=== PATIENT | female | born 2005 | race Caucasian/White ===

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

== ENCOUNTER 2023-05-04 00:41 | Emergency (ER) | payer BC, SELFPAY ==
[2023-05-04 00:42] VITALS: BP 119/86; PULSE 110; RESP 19; TEMP 36.9; O2SAT 99; BMI 34.4
[2023-05-04 00:50] VITALS: TEMP 37
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
[2023-05-04] MEDS: Ondansetron 4 MG/2 ML Vial IV (00:57)
[2023-05-04 01:04] LABS: Absolute Neutrophil Count 6.7 X10^3/uL (2.0-7.7); Basophil# 0.06 X10^3/uL; Basophil% 0.6 % (0-1); Eosinophil# 0.17 X10^3/uL; Eosinophils% 1.6 % (0-5); Hematocrit 36.9 % (37-47); Hemoglobin 11.8 g/dL (12.0-15.0); Lymphocyte % 27.3 % (19-41); Mean Corpuscular Hgb 26.9 pg (27.0-32.0); Mean Corpuscular Volume 84.1 fL (81-99); Mean Platelet Vol. 10.8 fl (6.2-12.0); Monocyte# 0.67 X10^3/uL; Monocyte% 6.3 % (0-10); NRBC Flagged by Analyzer 0 % (0-5); Neutrophil # 6.74 X10^3/uL (2.7-7.7); Neutrophil % 63.3 % (47-70); Platelet Count 307 K/mm3 (150-450); RBC Distribution Width CV 14.4 % (11.6-14.6); RBC Distribution Width SD 43.7 fl (35.1-43.9); Red Blood Count 4.39 M/mm3 (4.2-5.4); White Blood Count 10.6 K/mm3 (4.4-11.0)
[2023-05-04 01:13] LABS: Internal QC Validated? YES +Cl - CLEAR BKGD; Pregnancy, Serum, hCG Quali. NEGATIVE Negative
[2023-05-04 01:18] LABS: Anion Gap 7 (5-15); BUN 16 mg/dL (7-18); BUN/Creat Ratio 15.8 RATIO (10-20); Chloride 111 mmol/L (98-107); Creatinine, Serum 1.01 mg/dL (0.55-1.02); EST Glomerular Filtration Rate 74 mL/min (>60); Est Glom Filt Rate - Afr Amer 90 mL/min (>60); Estimated Creatinine Clearance 70.27 ml/min; Glucose 98 mg/dL (74-106); Potassium 3.6 mmol/L (3.5-5.1); Sodium Level 140 mmol/L (136-145)
[2023-05-04] MEDS: HYDROmorphone 0.5 MG/0.5 ML SYRINGE IV (02:00)
[2023-05-04 02:16] LABS: Mucous, Urine 0 SEEN /hpf (<or=2+); Red Blood Cells-Urine 0 SEEN /hpf (0-5)
[2023-05-04 02:18] LABS: Color, Urine Yellow (Yellow); Glucose, Dipstick Normal (Normal); Ketone-Dipstick Negative (Negative); Leukocyte Esterase-Dipstick 25 /ul (Negative); Nitrite-Dipstick Negative (Negative); Occult Blood-Urine Negative /ul (Negative); Protein-Dipstick Negative (Negative); Specific Gravity, Urine 1.005 (1.002-1.030); Urine Bilirubin Dipstick Negative (Negative); Urine Clarity Clear (Clear); Urine Urobilinogen Normal (Normal); Urine pH 6.5 (5.0 - 8.0)
[2023-05-04 02:23] LABS: Bacteria 2+ /hpf (None Seen); Squamous Epithelial Cells - UA 5-10 SEEN /hpf (5-10); White Blood Cells 0-5 SEEN /hpf (0-5)
== END 2023-05-04 02:54 | disposition home or self-care (01) ==
LOC: ED 02:19
PROVIDERS: Emergency Provider Emergency Medicine; Visit Provider Emergency Medicine
DX: S32.029A Unspecified fracture of second lumbar vertebra, initial encounter for closed fracture (principal); R00.0 Tachycardia, unspecified; R26.2 Difficulty in walking, not elsewhere classified; T68.XXXA Hypothermia, initial encounter; X31.XXXA Exposure to excessive natural cold, initial encounter; V48.5XXA Car driver injured in noncollision transport accident in traffic accident, initial encounter; Y92.410 Unspecified street and highway as the place of occurrence of the external cause
CPT/HCPCS: 74177; 80048; 81001; 84703; 85025; 93005; 96374; 96375; 99285; Q9967; A4216; J2405

== ENCOUNTER → 2023-05-05 | Outpatient (CLI) | payer BC, SELFPAY ==
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
== END | disposition home or self-care (01) ==
LOC: MRI 16:36
PROVIDERS: Referring Provider Orthopaedic Surgery; Visit Provider Orthopaedic Surgery
DX: S32.020A Wedge compression fracture of second lumbar vertebra, initial encounter for closed fracture (principal); X58.XXXA Exposure to other specified factors, initial encounter
CPT/HCPCS: 72148

== ENCOUNTER → 2024-09-16 | Outpatient (CLI) | payer BC, SELFPAY ==
--- NOTE | 2024-09-16 15:55 | RAD_ITS ---
STUDY: X-RAY CHEST REASON FOR EXAM: Female, 19 years old. cough TECHNIQUE: Frontal and lateral views of the chest. COMPARISON: May 04, 2023 CT lumbar spine.. FINDINGS: The lungs are clear and expanded. There is no demonstrated pleural abnormality. Normal size heart. Normal mediastinum and manolo. Normal visualized pulmonary arteries. Normal visualized aortic arch and descending thoracic aorta. Compression fracture L1 vertebral body unchanged. Normal visualized thoracic spine. Normal visualized ribs, clavicles, and shoulders. There is no demonstrated abnormality of the visualized soft tissue structures of the upper abdomen. RAD/Chest PA and Lateral IMPRESSION: No acute disease Electronically Signed: Beto Sun MD at 16:14 EST ,
== END | disposition home or self-care (01) ==
LOC: MTRAD 15:52
PROVIDERS: PCP Family Medicine; Referring Provider Physician Assistant; Visit Provider Physician Assistant
DX: R05.9 Cough, unspecified (principal)
CPT/HCPCS: 71046

== ENCOUNTER 2024-10-24 13:53 | Emergency (ER) | payer BC, SELFPAY ==
[2024-10-24 13:54] VITALS: BP 131/96; PULSE 102; RESP 15; TEMP 36.4; O2SAT 100; BMI 28.0
--- NOTE | 2024-10-24 14:32 | US_ITS ---
PROCEDURE: Right upper quadrant sonogram. COMPARISON: None FINDINGS: Liver: Grossly normal size and echotexture. It measures 14.9 cm Gallbladder: No stones, sludge, wall thickening or tenderness. Common bile duct: Normal measuring it measures 5 mm.. Pancreas: Visualized portions are sonographically unremarkable. Visualized portions of the right kidney are unremarkable. No right upper quadrant ascites. US/Gallbladder IMPRESSION: NORMAL RIGHT UPPER QUADRANT ULTRASOUND. Reading Location: [facility]-
--- NOTE | 2024-10-24 14:45 | ED.VIS.GI ---
HPI HPI - GI History of Present Illness Chief Complaint: Abd Pain Informant: patient Narrative Narrative: 4 years of upper abdominal pain. Patient seeing GI 3 years ago upper and lower scopes by Dr. Dumont. Reports negative. Symptoms are there every day worse when she eats junk food. She reports after GI she was referred to nephrology due to kidney disease. She is followed by Dr. Méndez. She reports only blood work no biopsies. No family history of autoimmune disease. No difficulty with urination. Last menstrual period a week ago. A week ago was seen at [facility] he reports an ultrasound gallbladder reports collapse.. She reports she did eat prior to being seen. Over the past week has also still been eating junk food pain has continued. No vomiting. Nausea. No diarrhea. Last meal was yesterday morning over 24 hours ago eating eggs and yogurt. [facility] 1.15 her GFR is been over 70 multiple labs findings were reviewed. Prior similar symptoms: Yes PFSH PFSH Medical History Acute bronchitis, unspecified Metatarsal bone fracture Hx of fracture of wrist Home Medications ?Medication ?Instructions ?Recorded ?Last Taken ?Type albuterol sulfate 90 mcg/actuation inhalation 09/16/24 Unknown History aerosol inhaler Allergy/AdvReac Type Severity Reaction Status Date / Time bupropion Allergy Other Verified 10/24/24 13:54 Penicillins AdvReac Vomiting Verified 10/24/24 13:54 Family History Grandmother Myocardial infarction Surgical History [place] teeth extracted Social History Smoking Status: Never smoker alcohol intake: never substance use type: does not use well-balanced diet: rarely or never caffeine: Yes eating out: 1-3 times/week what type of physical activity do you participate in: running and other details: softball, cheer, track frequency: 5-6 times per week duration: > 90 minutes/day seatbelt use: always ROS ROS ED Constitutional Constitutional ED: Denies chills, fever(s) or sweats ENT ENT ED: Denies sore throat Cardiovascular Cardiovascular: Denies chest pain, leg edema, palpitations or racing heartbeat Respiratory/Chest Respiratory/Chest: Denies cough, dyspnea or dyspnea on exertion Gastrointestinal Gastrointestinal: Reports abdominal pain and nausea; Denies diarrhea or vomiting Genitourinary Genitourinary ED: Denies dysuria, hematuria or urinary frequency Musculoskeletal Musculoskeletal: Denies back pain, extremity pain or neck pain Integumentary Denies rash or wounds Neurologic Neurologic: Denies headache(s), paresthesias or weakness EXAM Physical Exam Const Vital Signs: 10/24/24 13:54 10/24/24 15:49 Temperature 97.6 F L Temperature Source Temporal Pulse Rate 102 H 81 Respiratory Rate 15 16 Blood Pressure 131/96 H 104/68 Blood Pressure Mean 107 80 Pulse Ox 100 99 Oxygen Delivery Method Room Air Room Air Positive well nourished and well developed General Appearance ED: well developed and NAD HEENT Reports moist mucous membranes normocephalic and atraumatic Eyes General Eye ED: Yes normal appearance of both eyes Neck full ROM Chest Wall Chest: Negative for tenderness Resp normal respiratory effort and normal air movement Effort and Inspection: symmetric chest movement; Negative for respiratory distress Cardio regular rate, regular rhythm and no murmurs Peripheral Pulses: pulses 2+ throughout GI normal to inspection, nondistended, normoactive bowel sounds GI Narrative: Pain epigastric minimal right upper quadrant. No guarding or rebound. Negative McBurney's. Palpation: Negative for guarding or rebound tenderness present Extremity normal to inspection General Extremety ED: Negative for edema or tenderness General Extremity: Negative for edema Neuro oriented x3, CN's II-XII intact bilaterally and no sensory deficits noted Sensorium / Orientation: awake and alert Skin no rashes or lesions noted and no wounds MDM MDM MDM Narrative Medical decision making narrative: Interventions / MDM: Differential diagnosis: Gastritis, abdominal pain, biliary colic Diagnosis considered but do not suspect: Cholecystitis however ultrasound negative. My EKG interpretation: N/A Imaging independently reviewed and interpreted by myself: Right upper quadrant ultrasound: Normal gallbladder normal common bile duct. No stones. External documents reviewed: N/A Test considered but not ordered:N/A ED course: Patient pain for 4 years report pain worse with certain foods. She ate before her last ultrasound from history noting a collapsed gallbladder. She has not eaten for over 24 hours. I will check abdominal labs, will obtain gallbladder ultrasound will treat with Zofran and Pepcid. 1625: Labs normal ultrasound normal. Symptoms improved with Zofran and Pepcid. She is on omeprazole at home she has Zofran at home. Further discussion she states she has a scheduled HIDA scan next week for her gallbladder. She will keep this plan testing. She will follow-up with her doctors. All questions were answered. Re-evaluation: stable Disposition discussed with patient/family/significant other: Patient Case discussed with consulting clinician: N/A This note was generated with [employer] dictation software. It may contain incorrect words, spelling, and punctuation that were not noted in checking the note before signing. Lab Data Attestation: I reviewed the patient's lab results. Labs: Laboratory Results - last 24 hr 10/24/24 14:05 WBC 9.6 RBC 5.10 Hgb 14.6 Hct 44.2 MCV 86.7 MCH 28.6 MCHC 33.0 RDW Std Deviation 48.1 H RDW Coeff of Pao 15.1 H Plt Count 329 MPV 11.9 Immature Gran % (Auto) 0.300 Neut % (Auto) 78.1 H Lymph % (Auto) 14.5 L [place] % (Auto) 6.1 Eos % (Auto) 0.4 Baso % (Auto) 0.6 Absolute Neuts (auto) 7.5 Absolute Lymphs (auto) 1.39 Nucleated RBC % 0 Sodium 138 Potassium 4.3 Chloride 104 Carbon Dioxide 26.0 Anion Gap 8 BUN 11 Creatinine 1.02 Estim Creat Clear Calc 79.75 Est GFR (MDRD) Af Amer 87 Est GFR (MDRD) Non-Af 72 BUN/Creatinine Ratio 10.8 Glucose 85 Calcium 9.9 Total Bilirubin 1.00 Direct Bilirubin 0.27 AST 54 H ALT 108 H Alkaline Phosphatase 71 Total Protein 8.8 H Albumin 4.7 Globulin 4.1 Lipase 94 Serum , Qual NEGATIVE Radiography Diagnostic Testing: Clinical Impression(s) from Imaging Studies Gallbladder Ultrasound 10/24/24 14:32 IMPRESSION: NORMAL RIGHT UPPER QUADRANT ULTRASOUND. Reading Location: [place] [id number] Discharge Plan Triage Chief Complaint: Abd Pain ED Provider: Watson Osman Dx/Rx/DC Orders Clinical Impression: Abdominal pain, Gastritis Instructions: Abdominal Pain, ED Gastritis (Adult) Prescriptions: No Action albuterol sulfate 90 mcg/actuation HFA aerosol inhaler inhalation Stand Alone Forms: ED Work / School Excuse Primary Care Provider: Gilson Keita Referrals: Gilson Keita MD [Primary Care Provider] - 1 Week Activity Restrictions/Additional Instructions: Labs normal today. Gallbladder ultrasound normal. Keep your scheduled HIDA scan for gallbladder next week. Continue your omeprazole, use your home Zofran as needed. Follow-up with your doctors. Print Language: [place] Disposition Disposition: Home, Self Care
[2024-10-24] MEDS: Ondansetron 4 MG/2 ML Vial IV (14:48)
[2024-10-24] MEDS: 0.9% Normal Saline (1000mL) 1,000 ML 999 ML IV (14:48)
[2024-10-24 14:58] LABS: Absolute Lymphocyte Count 1.39 X10^3/uL (0.83-4.51); Absolute Neutrophil Count 7.5 X10^3/uL (2.0-7.7); Basophil# 0.06 X10^3/uL; Basophil% 0.6 % (0-1); Eosinophil# 0.04 X10^3/uL; Eosinophils% 0.4 % (0-5); Hematocrit 44.2 % (37-47); Hemoglobin 14.6 g/dL (12.0-15.0); Lymphocyte # 1.39 X10^3/ul (0.83-4.51); Lymphocyte % 14.5 % (19-41); Mean Corpuscular Hgb 28.6 pg (27.0-32.0); Mean Corpuscular Volume 86.7 fL (81-99); Mean Platelet Vol. 11.9 fl (6.2-12.0); Monocyte# 0.58 X10^3/uL; Monocyte% 6.1 % (0-10); NRBC Flagged by Analyzer 0 % (0-5); Neutrophil # 7.48 X10^3/uL (2.7-7.7); Neutrophil % 78.1 % (47-70); Platelet Count 329 K/mm3 (150-450); RBC Distribution Width CV 15.1 % (11.6-14.6); RBC Distribution Width SD 48.1 fl (35.1-43.9); White Blood Count 9.6 K/mm3 (4.4-11.0)
[2024-10-24 15:04] LABS: Internal QC Validated? YES +Cl - CLEAR BKGD; Pregnancy, Serum, hCG Quali. NEGATIVE Negative
[2024-10-24 15:09] LABS: AST(SGOT) 54 U/L (15-37); Alanine Aminotransfer ALT/SGPT 108 U/L (13-56); Albumin, Serum 4.7 g/dL (3.2-5.0); Alkaline Phosphatase 71 U/L (45-117); Anion Gap 8 (5-15); BUN 11 mg/dL (7-18); BUN/Creat Ratio 10.8 RATIO (10-20); Bilirubin, Direct 0.27 mg/dL (0.00-0.30); Calcium,Total 9.9 mg/dL (8.5-10.1); Chloride 104 mmol/L (98-107); Creatinine, Serum 1.02 mg/dL (0.55-1.02); EST Glomerular Filtration Rate 72 mL/min (>60); Est Glom Filt Rate - Afr Amer 87 mL/min (>60); Estimated Creatinine Clearance 79.75 ml/min; Globulin 4.1 g/dL (2.2-4.2); Glucose 85 mg/dL (74-106); Lipase 94 U/L (73-393); Potassium 4.3 mmol/L (3.5-5.1); Protein, Total 8.8 g/dL (6.4-8.2); Sodium Level 138 mmol/L (136-145)
[2024-10-24] MEDS: Famotidine 200 MG/20 ML MDV 20 MG in 0.9% Normal Saline (Pres. free 8 ML 300 MG IV (15:17)
[2024-10-24 15:49] VITALS: BP 104/68; PULSE 81; RESP 16; O2SAT 99
[2024-10-24 16:39] VITALS: BP 104/68; PULSE 81; RESP 16; TEMP 36.4; O2SAT 99
== END 2024-10-24 16:40 | disposition home or self-care (01) ==
PROVIDERS: Emergency Provider Emergency Medicine; PCP Family Medicine; Visit Provider Emergency Medicine
DX: K29.70 Gastritis, unspecified, without bleeding (principal); R10.10 Upper abdominal pain, unspecified
CPT/HCPCS: 76705; 80048; 80076; 83690; 84703; 85025; 96365; 96375; 99283; A4216; J2405